=== PATIENT | male | born 1975 | race Caucasian/White ===

== ENCOUNTER → 2024-09-23 07:04 | Outpatient (REF) | payer OTHER, SELFPAY | LOC: RAD 07:04 | PROVIDERS: ATTENDING PHYSICIAN Internal Medicine Cardiovascular Disease; FAMILY PHYSICIAN Internal Medicine | DX: I71.21 Aneurysm of the ascending aorta, without rupture (principal) | CPT/HCPCS: 71275; Q9967 ==

== ENCOUNTER → 2024-09-30 15:59 | Outpatient (REF) | payer OTHER, SELFPAY | LOC: HWRCS 15:59 | PROVIDERS: ATTENDING PHYSICIAN Internal Medicine Cardiovascular Disease; FAMILY PHYSICIAN Internal Medicine | DX: I71.21 Aneurysm of the ascending aorta, without rupture (principal) | CPT/HCPCS: 93306 ==

== ENCOUNTER → 2024-10-05 11:57 | Outpatient (REF) | payer OTHER, SELFPAY | LOC: HWRCS 11:57 | PROVIDERS: ATTENDING PHYSICIAN Internal Medicine Cardiovascular Disease; FAMILY PHYSICIAN Internal Medicine | DX: I71.21 Aneurysm of the ascending aorta, without rupture (principal); I10 Essential (primary) hypertension; R93.1 Abnormal findings on diagnostic imaging of heart and coronary circulation | CPT/HCPCS: 78452; 93017; A9500; J2785 ==

== ENCOUNTER 2024-10-15 06:20 | Day surgery (SDC) | payer OTHER, SELFPAY ==
[2024-10-15] VITALS (21 sets, daily range): BP systolic 109–137; BP diastolic 77–107; BMI 27.7
[2024-10-15] MEDS: LOW STRENGTH ASPIRIN 81 MG PO (06:54)
[2024-10-15 08:51] LABS: ACT-LR - POC 311 Seconds (116-155)
[2024-10-15 09:17] LABS: ACT-LR - POC 384 Seconds (116-155)
[2024-10-15 09:39] LABS: ACT-LR - POC 294 Seconds (116-155)
[2024-10-15 10:00] LABS: ACT-LR - POC 239 Seconds (116-155)
--- NOTE | 2024-10-15 10:14 | ITS.CL.CATH ---
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
Cardiac Catheterization
Procedure Report:
LEFT HEART CATH AND CORONARY INTERVENTION
Date of Procedure: October 15, 2024
Referring: Dr. Tim Oates
PROCEDURES:
1. Left heart catheterization with coronary and single-plane left ventriculography
2. Successful stenting of chronically occluded LAD with placement of a 3.0 x 22 mm Edmonds stent that was postdilated with a 3.5 mm noncompliant balloon
INDICATION: This is a 49-year-old gentleman with a past medical history notable for methamphetamine use. He has been clean for the last 2 months. He was found to have a bicuspid aortic valve and dilation of the aortic root measuring 4.[address] scan. His electrocardiogram was suggestive of an old anterior wall myocardial infarction and a stress study was notable for anterior ischemia. He is now referred for coronary angiography.
ACCESS: Right radial artery, 6 Occitan sheath
HEMODYNAMICS (mmHg):
AO (s/d) : 112/82, 96
LV (s/d) : 109/17
LVEDP : 31
CORONARY FINDINGS
Dominance: Right
LEFT MAIN: Normal
LEFT ANTERIOR DESCENDING: The LAD arises normally from the left main and runs in the anterior interventricular groove. There is a 40% proximal LAD stenosis. The LAD becomes 100% occluded after a large first diagonal branch. The distal LAD is
noted to fill via right to left collaterals. A second diagonal branch is noted to fill via right to left collaterals
CIRCUMFLEX: The circumflex is a medium caliber nondominant vessel giving rise to a small OM1 small to medium caliber OM 2 and terminates in a small OM 3. Minor irregularities are noted
RIGHT CORONARY: The right coronary artery was cannulated with an AL-1 diagnostic catheter. The right coronary artery is a large-caliber dominant vessel with a 30% mid stenosis. The PDA is large. The posterolateral branch is large collaterals are
noted to fill the mid to apical LAD and a right to left fashion
VENTRICULOGRAPHY: Left ventriculography was performed in an IBARRA projection. The digital single-plane left ventricular ejection fraction is estimated at 50% with anterolateral hypokinesis noted. The ascending aorta is noted to be dilated
ANGIOPLASTY PROCEDURE DETAIL: Upon review of the diagnostic catheterization films the decision was made to proceed with percutaneous revascularization of the chronically occluded mid LAD beyond the large first diagonal branch. The origin of the
left main proved difficult to cannulate with a 6 Occitan EBU 3.75 guiding catheter. Multiple attempts to engage the left main origin were unsuccessful and the catheter was ultimately removed and exchanged for a 6 Occitan EBU 4.0 guide catheter which
successfully cannulated the origin of the left main. Intravenous heparin was administered and the ACT was monitored during the procedure. A 600 mg loading dose of clopidogrel was administered at the beginning of the interventional procedure.
We attempted to cross the occluded mid LAD with a BMW guidewire. The BMW wire would not engage the occluded segment but could not advance beyond the occlusion. A balloon catheter was brought to the tip of the BMW wire to provide additional backup
support. Unfortunately, the wire still would not cross. The BMW wire was removed and exchanged for a Fielder XT wire. With a little luck and persistence, the Fielder XT was able to cross the occluded mid LAD segment and the wire was advanced into
the distal vessel. Balloon predilation was performed using a 2.0 mm Euphora balloon and anterograde flow was restored. A moderate caliber second diagonal branch was noted to arise at an acute angle from the diseased segment in the LAD. There was
very sluggish antegrade flow in the diagonal branch. We We attempted to pass a wire into the second diagonal branch but this was unsuccessful given the diseased ostia and acute angle that the diagonal branch arises from the LAD. At this point we
chose to stent the LAD with a 3.0 x 22 mm Markus stent. The stent was deployed at nominal pressures and the second diagonal branch lost flow. A modest amount of plaque shift occurred to the origin of the first diagonal branch as well. However,
there was VIOLA-3 into the first diagonal.
Intravascular ultrasound was then performed. The distal LAD beyond the stented segment was noted to be angiographically a small caliber vessel. IVUS confirmed that the distal LAD was a small caliber vessel. The distal stent edge appeared well
sized and well approximated to the LAD. The LAD near the mid to proximal portion of the stent had a minimal vessel diameter of around 3.6 mm and the ostial to mid stent was post dilated with a 3.5 mm NC balloon at 12-14 atmospheres. The LAD
proximal to the first diagonal branch had a significant plaque volume with an angiographically estimated 40% stenosis.
SEDATION: 123 minutes of procedural sedation was utilized. An independent medical case manager was present to assist with and help manage the patient's level of consciousness and physiologic status.
RADIATION SUMMARY: Fluoro Time (min): 32.6, Dose (mGy): 1739, DAP (Gy.cm2) : 112.8
CONCLUSIONS
1. Chronically occluded mid LAD requiring several wires to cross. Successful angioplasty and stenting of the mid LAD with a 3.0 x 22 mm Markus stent that was implanted at nominal pressures and postdilated with a 3.5 mm noncompliant balloon.
2. The second diagonal branch was jailed by the LAD stent and lost
3. Low normal LVEF estimated at 50% with anterolateral hypokinesis noted on ventriculography
RECOMMENDATIONS
1. Uninterrupted dual antiplatelet therapy for 6 months
2. Secondary risk modification
3. Will check serial CPK/MB given angiographic loss
Copy to: Dr. Tim Oates
[2024-10-15 11:02] LABS: Total CK 108 U/L (55-170)
[2024-10-15] MEDS: NSS 1000 IV (11:15)
[2024-10-15 11:25] LABS: CKMB 1.5 ng/ml (0.0-3.4)
--- NOTE | 2024-10-15 13:41 | PTCARENOTE ---
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 monitor placed, NSR, VSS. patient has no c//o of CO, SOB, dizziness. oriented to room and surroundings.
--- NOTE | 2024-10-15 14:34 | CM ---
Reviewed chart. Met with Mr. Payne to review discharge plans. He states prior to admission he resides with his parents in a two story home with two steps to enter. He states he has a full flight of steps to get to bedroom/full bathroom. He
states he has a powder room on the first floor. He states prior to admission he was independent with ambulation and adls. He states he does not have any DME in the home. He states he has a prescription plan and uses [facility]. The discharge
plan is to return home with his parents when medically stable.
[2024-10-15 19:03] LABS: Total CK 100 U/L (55-170)
--- NOTE | 2024-10-15 19:15 | PTCARENOTE ---
patient called out c/o discomfort in chest 4 out of 10, VSS, monitor shows NSR, EKG obtained, patient stated that he had red sauce for lunch and dinner and didnot take his Nexium today. TT Dr. Coronel, ordered Protonix po, given as ordered. report
given to oncoming RN and walking rounds completed.
[2024-10-15] MEDS: PROTONIX 40 MG PO (19:19)
[2024-10-15 19:36] LABS: CKMB 1.9 ng/ml (0.0-3.4)
--- NOTE | 2024-10-15 21:22 | PTCARENOTE ---
Pt rec'd at change of shift c/o Cp ,'burning' pt questioning if its related to tomato sauce he had had lunch and dinner. Pt missed his usual am Nexium dose. call manager physician called by day shift nurse and order for Protonix received and dose given.
After approx 45 mins pt reassessed and stated discomfort went from 4 to 1. Pt also stated he feels a little anxious and thinks that him listening to his relaxing music on his I phone is helping. CAD education given to pt. call mitchell within reach
[2024-10-16 02:40] VITALS: BP 108/79
[2024-10-16 03:02] LABS: Hematocrit 36.6 % (39.0-52.0); Hemoglobin 13.7 g/dL (13.0-18.0); Mean Corp Hgb Conc. 37.4 g/dL (33.0-37.0); Mean Corpuscular Hgb 33.5 pg (27.0-31.0); Mean Corpuscular Volume 89.5 fL (80.0-94.0); Mean Platelet Volume 10.1 fL (7.4-10.4); Platelet Count 167 10^3/uL (130-400); Red Blood Cell Count 4.09 10^6/uL (4.70-6.10); Red Cell Dist. Width 11.9 % (11.5-14.5); White Blood Cell Count 6.9 10^3/uL (4.8-10.8)
[2024-10-16 03:26] LABS: Total CK 96 U/L (55-170)
[2024-10-16 03:27] LABS: Blood Urea Nitrogen 20 mg/dl (9-20); Calcium 9.6 mg/dl (8.4-10.2); Carbon Dioxide 25 mmol/L (22-30); Chloride 106 mmol/L (98-107); Estimated Creatinine Clearance 106 ml/min; Glucose 101 mg/dl (70-99); HDL Cholesterol 31 mg/dl; Potassium 3.8 mmol/L (3.5-5.1); Sodium 140 mmol/L (135-145); Total Cholesterol 145 mg/dl (50-199); eGFR > 60.00
[2024-10-16 03:30] LABS: LDL Cholesterol, Calculated 30 mg/dl; Triglyceride 422 mg/dl (10-149); Very Low Density Lipoprotein 84 mg/dl (0-30)
[2024-10-16 03:50] LABS: CKMB 2.7 ng/ml (0.0-3.4)
[2024-10-16 03:54] LABS: LDL Cholesterol, Direct 66 mg/dl
--- NOTE | 2024-10-16 04:16 | PTCARENOTE ---
Pt reports having slept well, no c/o cp this morning. Labs and ECG completed.
--- NOTE | 2024-10-16 08:05 | W.PN.CARDCBS ---
Addendum entered and electronically signed by Tim Oates MD 10/16/24 10:38:
49-year-old man with known BAV and aneurysm of the ascending aorta, incidentally discovered on routine follow-up for his aorta to have a wall motion abnormality on echocardiography, leading to stress test suggesting an ischemic cardiomyopathy with
residual ischemia in the distribution of the LAD, leading to LAD PCI 10/15/2024, with jailing of D1 and loss of second D2, but without significant CK-MB elevation, says he feels 'beat up' but no other issues
Meds reviewed
119/85, pulse 76, right wrist intact, lungs clear, regular rate and rhythm, no murmurs, abdomen benign, extremities without clubbing cyanosis or edema
EKG sinus rhythm, anterior T wave inversion, anterior PR, similar to outpatient ECG
CBC normal, CK-MB 2.7
Impression:
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
Plan:
Discharge
Original Note:
Today's Communication / Plan
-
post PCI with jailed diag, mild exertional chest pain
oob ambulate
DAPT
titrate cholesterol meds goal LDL <55
Impression / Plan
-
PCP: Carlton Medellin MD
CDY: Tim Oates MD
49-year-old gentleman with a past medical history notable for methamphetamine use. He has been clean for the last 2 months. He was found to have a bicuspid aortic valve and dilation of the aortic root measuring 4.[address] scan. His
electrocardiogram was suggestive of an old anterior wall myocardial infarction and a stress study was notable for anterior ischemia. He is now referred for coronary angiography.
Impression:
Chest pain
CAD post PCI LAD x 1 DIANA 10/15/24
HTN
HLD
Ascending Aortic root dilation 5.0cm
Bicuspid Aortic valve
h/o methamphetamine use
Plan:
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
still having some mild 1-2/10 chest pain with activity
CKMB trended, negative for PR
tele SR no ectopy
Rad site stable
DAPT ASA/Plavix
Will switch Nexium to Protonix while on Plavix
Lipids with TG 522, LDL 66, goal LDL with CAD <55, will either increase atorvastatin to 80mg or add ezetimibe
continue nebivolol and amlodipine for HTN
Cardiac rehab c/s
f/u DCA 2-4 weeks
oob ambulate hallways, if CP not progressing home later today
PROCEDURES:
1. Left heart catheterization with coronary and single-plane left ventriculography
2. Successful stenting of chronically occluded LAD with placement of a 3.0 x 22 mm Hartman stent that was postdilated with a 3.5 mm noncompliant balloon
Progress Note - Stay Cutter
Subjective
Date of Service: October 16, 2024
denies sob, still with exertional chest pain 2/
Objective
Labs:
10/16/24 02:46
10/16/24 02:46
Labs
Hgb 13.7 g/dL (13.0-18.0) 10/16/24 02:46
Hct 36.6 % (39.0-52.0) L 10/16/24 02:46
Plt Count 167 10^3/uL (130-400) 10/16/24 02:46
Sodium 140 mmol/L (135-145) 10/16/24 02:46
Potassium 3.8 mmol/L (3.5-5.1) 10/16/24 02:46
BUN 20 mg/dl (9-20) 10/16/24 02:46
Creatinine 0.9 mg/dL (0.7-1.3) 10/16/24 02:46
Glucose 101 mg/dl (70-99) H 10/16/24 02:46
Vital Signs and I&O:
Vital Signs
Temp Pulse Resp BP Pulse Ox
97.6 F 65 20 108/79 96
10/16/24 02:41 10/16/24 04:00 10/16/24 02:41 10/16/24 02:40 10/16/24 02:41
Vital Signs
Temp Pulse Resp BP Pulse Ox
97.6 F 65 20 108/79 96
10/16/24 02:41 10/16/24 04:00 10/16/24 02:41 10/16/24 02:40 10/16/24 02:41
Intake & Output
10/14/24 10/15/24 10/16/24 10/17/24
06:59 06:59 06:59 06:59
Intake Total 740 / 740
Output Total 750 / 750
Balance -10 / -10
Physical Exam
Physical Exam
NAD, AOX3
S1, S2, RRR
CTAB< non labored, no wheeze
SNTND bsx4
R rad site c/d/i good pulse
[2024-10-16 08:06] VITALS: BP 123/100
[2024-10-16 08:16] VITALS: BP 119/85
--- NOTE | 2024-10-16 08:28 | PTCARENOTE ---
received patient this am, still c/o 1-2 CP with activity. Veronica Sunshine NP is aware. monitor shows NSR, VSS.
[2024-10-16] MEDS: LIPITOR 80 MG PO (08:39)
[2024-10-16] MEDS: WELLBUTRIN XL (24 hour extended release) 300 MG PO (08:39)
[2024-10-16] MEDS: PROTONIX 40 MG PO (08:39)
[2024-10-16] MEDS: WELLBUTRIN XL (24 hour extended release) 150 MG PO (08:40)
[2024-10-16] MEDS: LOW STRENGTH ASPIRIN 81 MG PO (08:40)
[2024-10-16] MEDS: BYSTOLIC 20 MG PO (08:40)
[2024-10-16] MEDS: NORVASC 5 MG PO (08:40)
[2024-10-16] MEDS: PLAVIX 75 MG PO (08:40)
--- NOTE | 2024-10-16 10:41 | W.DS.TRANS ---
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
-
Discharge Instructions:
Discharge Diagnosis/Procedures Angioplasty with stent to LAD
Diet Low Cholesterol
Driving Restrictions No driving for 24 hours
Other Services Cardiac Rehab
Instructions:
Stand-Alone Forms: DC Instructions- Cath/EP Lab
Changes to Home Medications: Yes
Discharge Medications:
DC Medications w/original date entered in [facility]
amlodipine 5 mg tablet (Norvasc) 5 mg PO DAILY 10/15/24
aspirin 81 mg chewable tablet 81 mg PO DAILY 10/15/24
bupropion HCl 150 mg 24 hr tablet, extended release (Wellbutrin XL) 150 mg PO DAILY 10/15/24
bupropion HCl 300 mg 24 hr tablet, extended release (Wellbutrin XL) 300 mg PO DAILY 10/15/24
nebivolol 20 mg tablet 20 mg PO DAILY 10/15/24
atorvastatin 80 mg tablet 80 mg PO DAILY #90 tabs 10/16/24
clopidogrel 75 mg tablet 75 mg PO DAILY #90 tabs 10/16/24
pantoprazole 40 mg tablet,delayed release 40 mg PO DAILY #90 tabs 10/16/24
Home Medication Changes
Pending Results: No
Total time spent discharging patient (in min): 40
--- NOTE | 2024-10-16 10:53 | CM ---
Reviewed chart. Met with Mr. Payne to review discharge plans. He states he maybe able to go home soon. Prior to admission he resides with his parents in a two story home with two steps to enter. He has a full flight of steps to get to
bedroom/full bathroom. He has a powder room on the first floor. Prior to admission he was independent with ambulation and adls. He does not have any DME in the home. He has a prescription plan and uses [facility]. The discharge plan is to
return home with his parents when medically stable.
[2024-10-16 12:25] VITALS: BP 120/70
--- NOTE | 2024-10-16 12:39 | PTCARENOTE ---
D/C instructions given to patient, verbalizes understanding. INT D/C'd, telemetry D/C'd, personal belongings packed and sent home with patient. waiting for family to pick him up.
--- NOTE | 2024-10-16 12:45 | PTCARENOTE ---
D/C to home via wc accompanied by staff.
== END 2024-10-16 13:00 | disposition home or self-care (01) ==
LOC: CATH 06:20
PROVIDERS: Nurse Practitioner Adult Health; ATTENDING PHYSICIAN Internal Medicine Interventional Cardiology; FAMILY PHYSICIAN Internal Medicine; OTHER PHYSICIAN Internal Medicine Cardiovascular Disease
DX: I25.10 Atherosclerotic heart disease of native coronary artery without angina pectoris (principal); I25.82 Chronic total occlusion of coronary artery; I10 Essential (primary) hypertension; F15.90 Other stimulant use, unspecified, uncomplicated; E78.5 Hyperlipidemia, unspecified; R07.9 Chest pain, unspecified; R94.31 Abnormal electrocardiogram [ECG] [EKG]; Z79.82 Long term (current) use of aspirin; Z79.899 Other long term (current) drug therapy; I77.819 Aortic ectasia, unspecified site
CPT/HCPCS: 80048; 80061; 82550; 82553; 83721; 85027; 85347; 92978; 93005; 93458; 99152; 99153; C1725; C1753; C1769; C1874; C1887; C1894; C9607; Q9967